=== PATIENT | male | born 1980 | race Caucasian/White ===

== ENCOUNTER 2017-11-21 16:35 | Emergency (ER) | payer OTHER ==
[~2017-11-21] VITALS: Ht 182.9 cm; Wt 74.8 kg
[~2017-11-21 16:35] MED LIST: Loperamide2 MG PO; NAPR500 PO; PROM25 PO; RXCODACET PO
== END 2017-11-21 17:40 | disposition home or self-care (01) ==
LOC: ER 16:35
DX: S49.91XA Unspecified injury of right shoulder and upper arm, initial encounter (principal); F17.210 Nicotine dependence, cigarettes, uncomplicated; X58.XXXA Exposure to other specified factors, initial encounter
CPT/HCPCS: 99282

== ENCOUNTER 2018-02-20 06:47 | Emergency (ER) | payer OTHER ==
[~2018-02-20] VITALS: Ht 182.9 cm; Wt 79.4 kg
[2018-02-20] MEDS ORDERED: Cleocin HCl300 MG PO (07:23)
[2018-02-20] MEDS ORDERED: Norco 10-325 T1 EACH PO (07:23)
== END 2018-02-20 07:26 | disposition home or self-care (01) ==
LOC: ER 06:47
DX: L02.413 Cutaneous abscess of right upper limb (principal); F17.200 Nicotine dependence, unspecified, uncomplicated
CPT/HCPCS: 10060; 99282-25

== ENCOUNTER 2018-10-01 11:18 | Emergency (ER) | payer OTHER ==
[~2018-10-01] VITALS: Ht 182.9 cm; Wt 79.4 kg
[~2018-10-01 11:18] MED LIST changes: +Cleocin HCl300 MG PO; +Norco 10-325 T1 EACH PO
[2018-10-01] MEDS ORDERED: Naprosyn500 MG PO (12:01)
== END 2018-10-01 12:02 | disposition home or self-care (01) ==
LOC: ER 11:18
DX: G89.29 Other chronic pain (principal); M25.511 Pain in right shoulder; Z79.899 Other long term (current) drug therapy; F17.210 Nicotine dependence, cigarettes, uncomplicated
CPT/HCPCS: 99283

== ENCOUNTER 2019-01-12 05:56 | Emergency (ER) | payer OTHER ==
[~2019-01-12] VITALS: Ht 182.9 cm; Wt 81.7 kg
[~2019-01-12 05:56] MED LIST changes: +Naprosyn500 MG PO
[2019-01-12] MEDS ORDERED: Amoxicillin500 MG PO (06:09)
[2019-01-12] MEDS ORDERED: Bactrim Ds Tab1 EACH PO (06:47)
[2019-01-12] MEDS ORDERED: Norco 5-325 Ta1 EACH PO (06:47)
== END 2019-01-12 06:58 | disposition home or self-care (01) ==
LOC: ER 05:56
DX: L03.012 Cellulitis of left finger (principal); F17.200 Nicotine dependence, unspecified, uncomplicated
CPT/HCPCS: 10060; 73140; 99283-25

== ENCOUNTER → 2019-04-29 | Outpatient (CLI) | payer OTHER ==
[~2019-04-29] MED LIST changes: +Amoxicillin500 MG PO; +Bactrim Ds Tab1 EACH PO; +Norco 5-325 Ta1 EACH PO
== END ==
LOC: LAB EV 14:07 → LAB SHORT 14:07
DX: L08.9 Local infection of the skin and subcutaneous tissue, unspecified (principal)
CPT/HCPCS: 87070; 87075; 87205

== ENCOUNTER 2023-02-15 11:47 | Emergency (ER) | payer OTHER ==
[~2023-02-15] VITALS: Ht 182.9 cm; Wt 81.7 kg
[2023-02-15 11:56] VITALS: BP 117/71
[2023-02-15] MEDS ORDERED: CYCL10 PO (12:59)
== END 2023-02-15 13:08 | disposition home or self-care (01) ==
LOC: ER 11:47
DX: M25.512 Pain in left shoulder (principal); F17.210 Nicotine dependence, cigarettes, uncomplicated
CPT/HCPCS: 73030; 96372; 99283-25; A9270; J1885

== ENCOUNTER 2023-08-31 21:01 | Emergency (ER) | payer OTHER ==
[~2023-08-31] VITALS: Ht 182.9 cm; Wt 81.7 kg
[~2023-08-31 21:01] MED LIST changes: +CYCL10 PO
[2023-08-31] MEDS ORDERED: Ondansetron 4 MG SoluTab MM ONE (21:25)
[2023-08-31 22:04] LABS: Influenza A, PCR NEGATIVE (NEGATIVE); Influenza B, PCR NEGATIVE (NEGATIVE); Resp Syncytial Virus, PCR NEGATIVE (NEGATIVE); SARS-Cov-2 (COVID-19) PCR, MMC NEGATIVE (NEGATIVE)
[2023-08-31 22:07] LABS: BASOPHILS ABSOLUTE AUTO 0.05 K/mm3 (0.00-0.23); BASOPHILS PERCENT AUTO 0 % (0-2); EOSINOPHILS ABSOLUTE AUTO 0.09 K/mm3 (0.00-0.68); EOSINOPHILS PERCENT AUTO 1 % (0-6); Hematocrit 51.6 % (37.0-53.0); Hemoglobin 18.3 g/dL (13.5-17.5); IMMATURE GRAN ABSOLUTE AUTO 0.04 K/mm3 (0.00-0.10); IMMATURE GRAN PERCENT AUTO 0 % (0-1); LYMPHOCYTES ABSOLUTE AUTO 1.33 K/mm3 (0.84-5.20); LYMPHOCYTES PERCENT AUTO 11 % (21-46); MONOCYTES ABSOLUTE AUTO 1.02 K/mm3 (0.16-1.47); MONOCYTES PERCENT AUTO 8 % (4-13); Mean Corpuscular HGB 30.8 pg (26.0-34.0); Mean Corpuscular HGB Conc 35.5 g/dL (31.5-36.5); Mean Corpuscular Volume 87 fL (80-100); Mean Platelet Volume 9.4 fL (9.1-12.4); NEUTROPHILS ABSOLUTE AUTO 9.89 K/mm3 (1.96-9.15); NEUTROPHILS PERCENT AUTO 80 % (41-73); Platelet Count 296 K/mm3 (150-400); RDW Coefficient Variation 13.1 % (11.7-14.2); RDW Standard Deviation 41.7 fL (35.1-46.3); Red Blood Cell Count 5.94 M/mm3 (4.30-5.90); White Blood Cell Count 12.42 K/mm3 (4.00-11.30)
[2023-08-31 22:25] LABS: Bilirubin, Total 0.3 mg/dL (0.1-1.0); Bun/Creatinine Ratio 21.1 (12.0-20.0); Calcium, Blood 9.7 mg/dL (8.5-10.1); Creatinine, Blood 0.86 mg/dL (0.60-1.20); Potassium, Blood 3.7 mmol/L (3.5-5.5)
[2023-08-31] MEDS ORDERED: NS 1,000 ML IV SCH (22:35)
[2023-08-31] MEDS ORDERED: Ondansetron HCl 2 MG / ML 2ML Vial IV ONE (22:40)
[2023-08-31] MEDS ORDERED: Ketorolac Tromethamine 30mg Vial IV ONE (22:40)
[2023-08-31] MEDS ORDERED: ONDA4ODT MM (23:28)
[2023-08-31 23:30] VITALS: BP 173/84
[2023-08-31] MEDS ORDERED: RX Prepack 2 Tabs Ondansetron ODT 4MG UD ONE (23:30)
[2023-09-01] MEDS ORDERED: PROM12.5S PR (12:11)
== END 2023-08-31 23:42 | disposition home or self-care (01) ==
LOC: ER 21:01
PROVIDERS: Physician Assistant
DX: R11.2 Nausea with vomiting, unspecified (principal); E86.0 Dehydration; R10.13 Epigastric pain; R10.11 Right upper quadrant pain; F17.210 Nicotine dependence, cigarettes, uncomplicated
CPT/HCPCS: 0241U; 80053; 85025; 96361; 96374; 96375; 99284-25; A9270; J1885; J2405; J7030

== ENCOUNTER 2023-09-01 09:01 | Emergency (ER) | payer OTHER ==
[~2023-09-01] VITALS: Ht 182.9 cm; Wt 81.7 kg
[~2023-09-01 09:01] MED LIST changes: +ONDA4ODT MM
[2023-09-01] MEDS ORDERED: NS 1,000 ML IV SCH (09:45)
[2023-09-01] MEDS ORDERED: Ondansetron HCl 2 MG / ML 2ML Vial IV ONE (09:45)
[2023-09-01] MEDS ORDERED: Pantoprazole Sodium 40 MG Injection IV ONE (09:45)
[2023-09-01 09:55] LABS: BASOPHILS ABSOLUTE AUTO 0.03 K/mm3 (0.00-0.23); BASOPHILS PERCENT AUTO 0 % (0-2); EOSINOPHILS ABSOLUTE AUTO 0.01 K/mm3 (0.00-0.68); EOSINOPHILS PERCENT AUTO 0 % (0-6); Hematocrit 50.9 % (37.0-53.0); Hemoglobin 18.3 g/dL (13.5-17.5); IMMATURE GRAN ABSOLUTE AUTO 0.08 K/mm3 (0.00-0.10); IMMATURE GRAN PERCENT AUTO 1 % (0-1); LYMPHOCYTES ABSOLUTE AUTO 1.02 K/mm3 (0.84-5.20); LYMPHOCYTES PERCENT AUTO 7 % (21-46); MONOCYTES ABSOLUTE AUTO 1.21 K/mm3 (0.16-1.47); MONOCYTES PERCENT AUTO 8 % (4-13); Mean Corpuscular HGB 31.1 pg (26.0-34.0); Mean Corpuscular Volume 86 fL (80-100); Mean Platelet Volume 9.6 fL (9.1-12.4); NEUTROPHILS PERCENT AUTO 85 % (41-73); Platelet Count 323 K/mm3 (150-400); RDW Coefficient Variation 13.2 % (11.7-14.2); RDW Standard Deviation 41.2 fL (35.1-46.3); Red Blood Cell Count 5.89 M/mm3 (4.30-5.90); White Blood Cell Count 15.45 K/mm3 (4.00-11.30)
[2023-09-01] MEDS ORDERED: Droperidol 5 mg/2 ml Vial IV ONE (10:05)
[2023-09-01 10:34] LABS: Albumin, Blood 3.6 g/dL (3.4-5.0); Albumin/Globulin Ratio 0.8 (0.8-1.8); Bilirubin, Total 0.6 mg/dL (0.1-1.0); Bun/Creatinine Ratio 25.3 (12.0-20.0); Calcium, Blood 9.3 mg/dL (8.5-10.1); Creatinine, Blood 0.83 mg/dL (0.60-1.20); Globulin, Blood 4.3 g/dL (2.2-4.0); Total Protein, Blood 7.9 g/dL (6.4-8.2)
[2023-09-01 11:30] VITALS: BP 153/102
[2023-09-01] MEDS ORDERED: PROM12.5S PR (12:11)
== END 2023-09-01 12:37 | disposition home or self-care (01) ==
LOC: ER 09:01
PROVIDERS: Emergency Medicine
DX: R11.2 Nausea with vomiting, unspecified (principal); E86.0 Dehydration; R10.13 Epigastric pain; R10.11 Right upper quadrant pain; E87.1 Hypo-osmolality and hyponatremia; F17.210 Nicotine dependence, cigarettes, uncomplicated
CPT/HCPCS: 76705; 80053; 83690; 85025; 96361; 96374; 96375; 99284-25; C9113; J1790; J2405; J7030

== ENCOUNTER 2023-09-10 17:20 | Inpatient (IN) | payer OTHER ==
[~2023-09-10] VITALS: Ht 182.9 cm; Wt 85.0 kg
[~2023-09-10 17:20] MED LIST changes: +PROM12.5S PR
[2023-09-10 18:44] LABS: BASOPHILS ABSOLUTE AUTO 0.06 K/mm3 (0.00-0.23); BASOPHILS PERCENT AUTO 1 % (0-2); EOSINOPHILS ABSOLUTE AUTO 0.61 K/mm3 (0.00-0.68); EOSINOPHILS PERCENT AUTO 6 % (0-6); Hematocrit 50.5 % (37.0-53.0); Hemoglobin 17.4 g/dL (13.5-17.5); IMMATURE GRAN ABSOLUTE AUTO 0.03 K/mm3 (0.00-0.10); IMMATURE GRAN PERCENT AUTO 0 % (0-1); LYMPHOCYTES PERCENT AUTO 24 % (21-46); MONOCYTES ABSOLUTE AUTO 0.99 K/mm3 (0.16-1.47); MONOCYTES PERCENT AUTO 10 % (4-13); Mean Corpuscular HGB 31.2 pg (26.0-34.0); Mean Corpuscular HGB Conc 34.5 g/dL (31.5-36.5); Mean Corpuscular Volume 91 fL (80-100); Mean Platelet Volume 9.3 fL (9.1-12.4); NEUTROPHILS ABSOLUTE AUTO 5.81 K/mm3 (1.96-9.15); NEUTROPHILS PERCENT AUTO 59 % (41-73); Platelet Count 323 K/mm3 (150-400); RDW Coefficient Variation 13.4 % (11.7-14.2); RDW Standard Deviation 44.8 fL (35.1-46.3); Red Blood Cell Count 5.58 M/mm3 (4.30-5.90)
[2023-09-10 19:04] LABS: Albumin, Blood 3.6 g/dL (3.4-5.0); Bilirubin, Total 0.4 mg/dL (0.1-1.0); Bun/Creatinine Ratio 20.5 (12.0-20.0); Calcium, Blood 9.1 mg/dL (8.5-10.1); Creatinine, Blood 0.98 mg/dL (0.60-1.20); Globulin, Blood 3.5 g/dL (2.2-4.0); Potassium, Blood 3.7 mmol/L (3.5-5.5); Total Protein, Blood 7.1 g/dL (6.4-8.2)
[2023-09-10] MEDS ORDERED: FentaNYL Citrate 50 MCG/ML 2 ML Injection IV PRN (19:20)
[2023-09-10] MEDS ORDERED: FentaNYL Citrate 50 MCG/ML 2 ML Injection ONE (19:21)
[2023-09-10] MEDS ORDERED: Ondansetron HCl 2 MG / ML 2ML Vial IV PRN (20:25)
[2023-09-10] MEDS ORDERED: Albuterol 2.5 MG/3 ML VIAL INH PRN (20:25)
[2023-09-10] MEDS ORDERED: FLU VACC QS2023-24(6MOS UP)/PF 60 MCG/0.5 ML SYRINGE IM SCH (20:25)
[2023-09-10] MEDS ORDERED: NS 1,000 ML IV SCH (20:25)
[2023-09-10] MEDS ORDERED: Acetaminophen 325 MG TABLET PO PRN (20:25)
[2023-09-10] MEDS ORDERED: OxyCODONE HCL 5 MG TAB PO PRN (20:25)
[2023-09-10] MEDS ORDERED: NS 1,000 ML IV ONE (21:09)
[2023-09-10 22:51] VITALS: BP 133/88
[2023-09-11] MEDS ORDERED: FentaNYL Citrate 50 MCG/ML 2 ML Injection IV PRN (00:35)
[2023-09-11] MEDS ORDERED: Naloxone HCl 0.4MG / ML 1ML Vial IV PRN (00:35)
[2023-09-11 02:00] VITALS: BP 129/92
[2023-09-11 03:41] LABS: U Amphetamine Screen DETECTED; U Barbituate Screen Not Detected; U Benzodiazapine Screen Not Detected; U Buprenorphine Screen Not Detected; U Cannabinoids Screen DETECTED; U Cocaine Screen Not Detected; U Methadone Screen Not Detected; U Methamphetamine Screen DETECTED; U Opiates Screen Not Detected; U Oxycodone Screen DETECTED; U Phencyclidine Screen Not Detected
--- NOTE | 2023-09-11 06:23 | NUR ---
SHIFT SUMMARY: SHIRA IS A&OX4. VSS, NO ACUTE EVENTS SINCE ADMISSION TO THE FLOOR THIS SHIFT. HE IS TOLERATING PO INTAKE WELL, REPORTED POOR PAIN CONTROL WITH MEDICATIONS PER MAR BUT HAS BEEN RESTING QUIETLY SINCE ADMIN OF FENTANYL. HE HAS BEEN USING THE URINAL WITHOUT DIFFICULTY. CHEST TUBE TO WALL SUCTION, NO CREPITUS, PT REPORTS IMPROVEMENT IN SHORTNESS OF BREATH SINCE PLACEMENT OF CHEST TUBE IN THE ER. IV FLUIDS INFUSING TO IV IN RIGHT HAND. PT IS LYING IN BED WITH THE CALL LIGHT IN REACH, WHICH HE HAS USED APPROPRIATELY THIS SHIFT. WILL GIVE REPORT TO DAY SHIFT RN.
[2023-09-11] MEDS ORDERED: Ketorolac Tromethamine 15mg Vial IV PRN (07:35)
[2023-09-11 07:57] VITALS: BP 124/93
[2023-09-11] MEDS ORDERED: Nicotine 14 MG PATCH TOP SCH (09:00)
--- NOTE | 2023-09-11 10:37 | NUR ---
DR SANDERS CAME BY AND ASSESSED PATIENT AT 0900. HE TURNED OFF SUCTION AT 0910 AND GAVE ORDERS TO RESUME SUCTION AT -20 IF PATIENT C/O SHORTNESS OF BREATH AGAIN AND TO CONTACT DR SANDERS. DR SANDERS CALLED CRM MARKETING SPECIALIST BACK AND REQUESTED PUSH [facility] CALL PLACED BY THIS CRM MARKETING SPECIALIST TO IMAGE LATH HAND FOR IMAGE PUSH AT 0930. PATIENT CONTINUES TO DENY ANY SHORTNESS OF BREATH AT THIS TIME.
[2023-09-11 16:13] VITALS: BP 127/86
--- NOTE | 2023-09-11 18:10 | NUR ---
SHIFT SUMMARY PATIENT DENIES ANY SHORTNESS OF BREATH TODAY, CHEST TUBE DISCONNECTED SO ONLY ONE WAY VALVE DEVICE IS IN. MEDICATED FOR PAIN PER EMAR WITH GOOD RELIEF. BED IN LOW POSITION, CALL LIGHT IN REACH. PATIENT ABLE TO MAKE NEEDS KNOWN.
[2023-09-11 19:33] VITALS: BP 140/91
[2023-09-12 02:19] VITALS: BP 120/91
[2023-09-12 04:57] LABS: BASOPHILS ABSOLUTE AUTO 0.06 K/mm3 (0.00-0.23); BASOPHILS PERCENT AUTO 1 % (0-2); EOSINOPHILS ABSOLUTE AUTO 0.64 K/mm3 (0.00-0.68); EOSINOPHILS PERCENT AUTO 8 % (0-6); Hematocrit 47.8 % (37.0-53.0); Hemoglobin 16.7 g/dL (13.5-17.5); IMMATURE GRAN ABSOLUTE AUTO 0.03 K/mm3 (0.00-0.10); IMMATURE GRAN PERCENT AUTO 0 % (0-1); LYMPHOCYTES ABSOLUTE AUTO 2.08 K/mm3 (0.84-5.20); LYMPHOCYTES PERCENT AUTO 27 % (21-46); MONOCYTES ABSOLUTE AUTO 0.79 K/mm3 (0.16-1.47); MONOCYTES PERCENT AUTO 10 % (4-13); Mean Corpuscular HGB 31.1 pg (26.0-34.0); Mean Corpuscular HGB Conc 34.9 g/dL (31.5-36.5); Mean Corpuscular Volume 89 fL (80-100); Mean Platelet Volume 9.4 fL (9.1-12.4); NEUTROPHILS PERCENT AUTO 54 % (41-73); Platelet Count 306 K/mm3 (150-400); RDW Coefficient Variation 13.2 % (11.7-14.2); Red Blood Cell Count 5.37 M/mm3 (4.30-5.90)
--- NOTE | 2023-09-12 05:35 | NUR ---
SHIFT SUMMARY NOC PT A/O X 4. PLEASANT AND COOPERATIVE WITH CARE. NO ACUTE EVENTS TO REPORT. PT AWAITING BED AVAILABILITY AT [facility] FOR VATS BULLECTOMY/PLEURODESIS FOR PNEUMOTHORAX/EMPHYSEMA. PT HAS THORAVENT IN PLACE IN R LATERAL CHEST WALL WITH TRANSPARANT DRESSING C/D/I. CHEST TUBE REMOVED YESTERDAY, BUT CT STILL HOOKED UP IF PT STARTS EXPERIENCING SOB, AND CAN BE INSERTED INTO THORAVENT. PT R CHEST PAIN BEING MANAGED PER EMAR. PT TOOK SHOWER DURING SHIFT WITH HOT MILL SHEARER CLOSE BY IN CASE PT EXPERIENCED SOB EPISODE. PT IS CURRENTLY RESTING WITH BED IN LOWEST POSITION, AND CALL LIGHT WITHIN REACH.
[2023-09-12 06:00] LABS: Albumin, Blood 3.3 g/dL (3.4-5.0); Albumin/Globulin Ratio 0.9 (0.8-1.8); Bilirubin, Total 0.3 mg/dL (0.1-1.0); Bun/Creatinine Ratio 14.5 (12.0-20.0); Creatinine, Blood 0.83 mg/dL (0.60-1.20); Globulin, Blood 3.5 g/dL (2.2-4.0); Total Protein, Blood 6.8 g/dL (6.4-8.2)
[2023-09-12 07:58] VITALS: BP 119/87
[2023-09-12 15:20] VITALS: BP 105/88
--- NOTE | 2023-09-12 16:27 | NUR ---
SHIFT SUMMARY PATIENT USING TOREDOL AND OXY FOR PAIN RELIEF THIS SHIFT. AMBULATING TO BATHROOM AND SHOWERING INDEPENDENTLY, TOLERATING WELL. CHEST TUBE REMAINS SEALED, CHEST X RAY PERFORMED THIS SHIFT. NO WORD ON TRANSFERRING FACILITIES THIS SHIFT. CALL LIGHT IN REACH. CARES ONGOING.
[2023-09-12 20:18] VITALS: BP 133/91
[2023-09-13 05:12] VITALS: BP 121/78
--- NOTE | 2023-09-13 06:11 | NUR ---
SHIFT SUMMARY NOC PT A/O X 4. PLEASANT AND COOPERATIVE WITH CARE. VSS. NO ACUTE EVENTS TO REPORT. BED NOW AVAILABLE AT [facility] FOR VATS BULLECTOMY/PLEURODESIS FOR PNEUMOTHORAX/EMPHYSEMA. [facility]BRA TRANSFER WILL TAKE PLACE AFTER 0800, MD STILL NEEDS TO PUT TRANSFER ORDER IN. ELECTION ASSISTANT CONTACTED BY NURSING SENIOR SOFTWARE SYSTEMS ENGINEER @ [facility] DOCUMENTS SENT VIA FAX. PT HAS THORAVENT IN PLACE IN R LATERAL CHEST WALL WITH TRANSPARANT DRESSING C/D/I. PT R CHEST PAIN BEING MANAGED PER EMAR. PT IS CURRENTLYRESTING WITH BED IN LOWEST POSITION, AND CALL LIGHT WITHIN REACH.
[2023-09-13 06:26] LABS: ALPHA-1-ANTITRYPSIN 138 mg/dL (90-200)
[2023-09-13 07:56] VITALS: BP 134/93
[2023-09-13 08:03] VITALS: BP 134/93
--- NOTE | 2023-09-13 09:47 | NUR ---
COBRA TRANSFER PATIENT TRANSFERED TO [facility] CCU RM. 276 VIA [facility] FOR BULLECTOMY/VATS PROCEDURE. DR. MEDINA ACCEPTING. REPORT CALLED TO TOÑITO LILLY.
== END 2023-09-13 09:37 | disposition short-term general hospital (02) | DRG 200 ==
LOC: ER 17:20 → MEDS 20:20 → SURS 20:20 → MEDS 22:36
PROVIDERS: Family Medicine; Nurse Practitioner Acute Care; Physician Assistant; ADMIT Student in an Organized Health Care Education/Training Program
PROC: 0W9930Z Drainage of Right Pleural Cavity with Drainage Device, Percutaneous Approach (ICD-10-PCS; principal; 2023-09-10)
DX: J93.12 Secondary spontaneous pneumothorax (principal); F17.213 Nicotine dependence, cigarettes, with withdrawal; J90 Pleural effusion, not elsewhere classified; F41.1 Generalized anxiety disorder; F15.10 Other stimulant abuse, uncomplicated; F12.10 Cannabis abuse, uncomplicated; J43.9 Emphysema, unspecified; J44.9 Chronic obstructive pulmonary disease, unspecified; Z71.6 Tobacco abuse counseling; Z79.899 Other long term (current) drug therapy
CPT/HCPCS: 32551; 36415; 71045; 71046; 80053; 82103; 84484; 85025; 85379; 93005; 93010; 94760; 96374-59; 96376-59; 99285-25; A9270; J1885; J3010; J7030

== ENCOUNTER 2024-12-05 22:24 | Emergency (ER) | payer OTHER ==
[~2024-12-05] VITALS: Ht 182.9 cm; Wt 95.2 kg
[2024-12-05 23:18] LABS: BASOPHILS ABSOLUTE AUTO 0.06 K/mm3 (0.00-0.23); BASOPHILS PERCENT AUTO 1 % (0-2); EOSINOPHILS ABSOLUTE AUTO 0.41 K/mm3 (0.00-0.68); EOSINOPHILS PERCENT AUTO 5 % (0-6); Hematocrit 46.3 % (37.0-53.0); Hemoglobin 16.2 g/dL (13.5-17.5); IMMATURE GRAN ABSOLUTE AUTO 0.02 K/mm3 (0.00-0.10); IMMATURE GRAN PERCENT AUTO 0 % (0-1); LYMPHOCYTES ABSOLUTE AUTO 2.53 K/mm3 (0.84-5.20); LYMPHOCYTES PERCENT AUTO 31 % (21-46); MONOCYTES ABSOLUTE AUTO 0.79 K/mm3 (0.16-1.47); MONOCYTES PERCENT AUTO 10 % (4-13); Mean Corpuscular HGB 31.6 pg (26.0-34.0); Mean Corpuscular Volume 90 fL (80-100); NEUTROPHILS ABSOLUTE AUTO 4.39 K/mm3 (1.96-9.15); NEUTROPHILS PERCENT AUTO 54 % (41-73); Platelet Count 262 K/mm3 (150-400); RDW Coefficient Variation 13.7 % (11.7-14.2); RDW Standard Deviation 45.5 fL (35.1-46.3); Red Blood Cell Count 5.13 M/mm3 (4.30-5.90)
[2024-12-05 23:36] LABS: Albumin, Blood 3.5 g/dL (3.4-5.0); Bilirubin, Total 0.1 mg/dL (0.1-1.0); Bun/Creatinine Ratio 24.1 (12.0-20.0); Creatinine, Blood 0.91 mg/dL (0.60-1.20); Globulin, Blood 3.5 g/dL (2.2-4.0); Potassium, Blood 3.9 mmol/L (3.5-5.5)
[2024-12-06] MEDS ORDERED: PredniSONE 20 MG Tab PO ONE (00:45)
[2024-12-06] MEDS ORDERED: Albuterol 2.5 MG/3 ML VIAL INH SCH (00:45)
[2024-12-06] MEDS ORDERED: Azithromycin 250 MG Tab PO ONE (00:45)
[2024-12-06] MEDS ORDERED: ALBU90OI INH (00:46)
[2024-12-06] MEDS ORDERED: Zithromax250 MG PO (00:46)
[2024-12-06] MEDS ORDERED: Prednisone20 MG PO (00:46)
[2024-12-06 01:54] VITALS: BP 106/75
== END 2024-12-06 01:57 | disposition home or self-care (01) ==
LOC: ER 22:24
PROVIDERS: Student in an Organized Health Care Education/Training Program
DX: J44.1 Chronic obstructive pulmonary disease with (acute) exacerbation (principal); F17.200 Nicotine dependence, unspecified, uncomplicated
CPT/HCPCS: 71046; 80053; 84484; 85025; 93005; 93010; 99285-25; A9270; J7512